=== PATIENT | female | born 1970 | race Caucasian/White ===

== ENCOUNTER 2024-06-23 13:01 | Outpatient (AMB) | payer BC, SELFPAY ==
--- NOTE | 2024-06-23 13:05 | MHC.OFFVIS ---
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 Accompanied by: Self / Same As Patient Allergies No Known Allergies Allergy (Verified 06/23/24 13:08) Medication List - Last Reconciled 06/23/24 by NAINA Jimenez albuterol sulfate 90 mcg/actuation 2 puffs inhalation Q6H PRN fluticasone furoate-vilanterol 100-25 mcg/dose 1 inh inhalation DAILY nkburoeetlx-khdiixajy-euxygjyo 100-62.5-25 mcg (Trelegy Ellipta) 1 inh inhalation DAILY gabapentin 300 mg PO TID sertraline 25 mg PO DAILY simvastatin 20 mg PO BEDTIME tramadol 50 mg PO BID PRN HPI HPI Fibromyalgia: Details: Patient is a 54 years old female with history of chronic pain syndrome, low back pain with bilateral sciatica, right knee pain, antiphospholibid syndrome, fatigue, depression, fibromyalgia, PE with infaction in 1992, COVID in 2021, migraine headaches, and RLS, presents today for initial evaluation of chronic pain and fibromyalgia. Denies any recent trauma, injury or falls. Patient completed physical therapy course at [facility] 5 months ago with minimal improvement. Reports therapeutic hip injection over 10 years ago. Patient reports chronic and widespread diffuse musculoskeletal pain on both sides of the body for over 35 years without any inciting events. She does report Neurological event in 2019 with new onset of severe headache, imbalance, movement disorders, tics which has improved but continues to experience concerning memory issues. Reports moderate trouble thinking and remembering. Patient also reports axial low back pain which extends to the right sacral area but without radiation into lower extremities. Pain is most severe in the morning, rated at 9/10. Reports fatigue and waking up tired on most days. Pain has gotten worse after menopause. She has seen a hypnotist for the pain in the past with some benefit. Pain affects here daily activities and functioning, mobility, sleep, mood and social interactions. Patient has been taking tramadol, Tylenol, Ibuprofen and gabapentin with partial benefit. She is interested in interventional and non-pharmacological treatments to address her symptoms. Today we are focusing on lower back pain. Denies any fevers, chills, cough, shortness of breaths, chest pain, weakness, foot drop, bladder or bowel dysfunction, or saddle anesthesia. 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 Right hand dominant. Drinks 2-3 cups of coffee daily and consumes marijuana edibles. Denies alcohol, smoking or illicit drug use. Former tobacco smoker 1PPD. Location: Lower back, widespread body pain Duration: Chronic pain for over 35 years Characteristics of symptom or complaint: Aching, throbbing, shooting, pulsing, burning, tingling, sharp, spreading Aggravating or associated factors: ALDs, movements, sleep, cold weather changes, stress Relieving factors: None, currently on tramadol, Tylenol, gabapentin, NSAIDs Treatment: PT at [facility] 5 months ago--minimal to no improvement, h/o hip injection [facility] Medical History (Updated 06/26/24 @ 10:52 by NAINA Jimenez) Depression Chronic fatigue Antiphospholipid syndrome Migraine Insomnia Obstructive sleep apnea Restless leg syndrome Hypercholesterolemia Asthma Chronic pain syndrome Fibromyalgia Pulmonary embolism and infarction (~1992) Surgical History H/O: hysterectomy H/O lumpectomy Social History Alcohol intake: never Patient Tobacco Use Status: Former Tobacco user Substance Use Type: Other Substance Use Type Other:: gummies Review of Systems Const All systems reviewed & are unremarkable except as noted in HPI and below Physical Exam Vital Signs: Last Vital Signs Pulse 78 06/23/24 13:09 BP 137/94 H 06/23/24 13:09 Pulse Ox 97 06/23/24 13:09 Oxygen Delivery Method Room Air 06/23/24 13:09 BMI result Body Mass Index 31.9 General: Appears afebrile. No acute distress. Alert and oriented. Mood and affect appropriate. Follows and participates in conversation appropriately. Respiratory effort is unlabored. No cough. Able to transition from sit to stand unassisted. Ambulates with bilaterally normal heel strike and toe off. General: Yes no CVA tenderness Back/Spine/Pelvis Other: Patient is able to walk and stand on heels and tip toes with no difficulties demonstrating good motor tone. No limping. Can flex forward to 70-75 degrees and extend to 10-15 degrees before experiencing lumbar pain. Demonstrates 5/5 strength of quadriceps bilaterally as well as flexion/dorsiflexion of bilateral feet against resistance. 2+ pedal pulses bilaterally. Straight leg rise with dorsiflexion negative bilaterally. +2 patellar and achilles reflexes bilaterally. Facet loading test positive bilaterally. Aime sign, Rashard?s, Gaenslen, Pelvic compression and Stinchfield tests are positive on the right. No groin pain with I/E hip rotations. Valsalva maneuver negative. Multiple widespread TTPs 16/16 bilaterally, including upper and lower extremities.?? Back: no CVA tenderness Cervical Spine: cervical ROM normal, cervical muscular tenderness and No Cervical spine tenderness Thoracic/Lumbar Spine: thoracic and lumbar spine normal to inspection, No Thoracic/lumbar spine scar(s), Lasegue's sign negative, straight leg raise negative bilaterally, pain with thoraco-lumbar ROM, paraspinal muscle tenderness, thoraco-lumbar ROM limited, No thoracic spinal tenderness and No lumbar spinal tenderness Pelvis: no buttock tenderness Sacroiliac joints: bilaterally (right>left) tender to palpation Results Reviewed Results Reviewed: MR LUMBAR SPINE WITHOUT CONTRAST 06/21/2019 at [facility] HISTORY: Decreased sensation both feet while walking rule out spinal stenosis initial encounter COMPARISON: None. TECHNIQUE: Sagittal and axial T1-weighted and fast spin echo T2-weighted images were obtained. FINDINGS: L1-2: The disc is of normal height and signal intensity without significant disc bulge or herniation. L2-3: The disc is of normal height and signal intensity without significant disc bulge or herniation. L3-4: The disc is of normal height and signal intensity without significant disc bulge or herniation. L4-5: The disc is of slightly diminished height and signal intensity. There is an annular tear with mild central disc herniation causing mild flattening the dural sac without nerve root compression. L5-S1: The disc is of normal height and signal intensity without significant disc bulge or herniation. Vertebral alignment is normal. There are scattered small benign vertebral hemangiomata. The marrow signal intensity is otherwise normal. Conus terminates at L1-2 and appears normal. There is no paraspinous mass. IMPRESSION: 1. Mild disc herniation at L4-5 causing mild flattening the dural sac without nerve root. MRI the lumbar spine is otherwise normal. No evidence for significant disc herniation or spinal stenosis. Assessment & Plan Assessment & Plan (1) Fibromyalgia: Code(s): M79.7 - Fibromyalgia Category: Medical (2) Chronic pain syndrome: Code(s): G89.4 - Chronic pain syndrome Category: Medical (3) Chronic low back pain: Code(s): M54.50 - Low back pain, unspecified; G89.29 - Other chronic pain Category: Medical (4) Sacroiliac joint pain: Code(s): M53.3 - Sacrococcygeal disorders, not elsewhere classified (5) Lumbosacral spondylosis: Code(s): M47.817 - Spondylosis without myelopathy or radiculopathy, lumbosacral region Category: Medical Plan Lumbar spine and SIJ imaging to assess degree of degenerative changes, any subluxation, listhesis, compression fractures or pars defects. Discussed interventional treatments for axial low back pain, including diagnostic and therapeutic injections, neuromodulation, and RFA procedures. Informational pamphlets were provided to patient. Tentatively plan for Bilateral Diagnostic L3-L4-DR L5 MBB with local and fluoroscopy. Expectations, risks and benefits were reviewed. Discussed management of fibromyalgia with patient. Educated patient that fibromyalgia is a noninflammatory, non-autoimmune and central afferent processing disorder leading to a diffuse and widespread musculoskeletal pain syndrome. Discussed importance of CBT for sleep and pain which patient can discuss with psychotherapist or mental therapist. Patient would benefit from increased physical activity, either through formal physical therapy, joining a gym, swimming with aquatherapy, stretching and acupuncture. Patient is currently prescribed gabapentin and tramadol by her PCP. Encouraged daily adequate hydration, good posture, physical activity, well balanced diet, weight optimization and sleep hygiene. All questions and concerns have been answered and patient agreed with the plan. Follow up for xray results and sooner as needed. Orders: Orders XR lumbar spine 4V min 06/23/24 G89.29 - Other chronic pain, G89.4 - Chronic pain syndrome, M54.50 - Low back pain, unspecified, M79.7 - Fibromyalgia XR sacroiliac joint min 3V 06/23/24 M53.3 - Sacrococcygeal disorders, not elsewhere classified Coding Level of Care Code New Pt Level 4 (06128) Complex EM visit Add On G2211 Diagnoses Fibromyalgia M79.7 Chronic pain syndrome G89.4 Chronic low back pain M54.50; G89.29 Sacroiliac joint pain M53.3 Lumbosacral spondylosis M47.817
[2024-06-23 13:09] VITALS: BP 137/94; PULSE 78; O2SAT 97; BMI 31.9
== END 2024-06-23 13:55 | disposition home or self-care (01) ==
PROVIDERS: PCP Internal Medicine; Visit Provider Nurse Practitioner Family
DX: M79.7 Fibromyalgia (principal); G89.4 Chronic pain syndrome; M54.50 Low back pain, unspecified; G89.29 Other chronic pain; M53.3 Sacrococcygeal disorders, not elsewhere classified; M47.817 Spondylosis without myelopathy or radiculopathy, lumbosacral region
CPT/HCPCS: 99204

== ENCOUNTER → 2024-06-23 13:01 | Outpatient (BNVA) | payer BC, SELFPAY | PROVIDERS: PCP Internal Medicine; Visit Provider Nurse Practitioner Family ==

== ENCOUNTER 2024-08-30 12:13 | Outpatient (REF) | payer BC, SELFPAY ==
--- NOTE | ~2024-08-30 | XR_ITS ---
EXAMINATION: XR SACROILIAC JOINTS CLINICAL INFORMATION: M53.3 - Sacrococcygeal disorders, not elsewhere classified COMPARISON: None available. TECHNIQUE: 3 views of the sacroiliac joints FINDINGS: Sclerosis of the sacroiliac joints more conspicuous on the right side. No lytic or blastic lesions. No acute cortical disruption. XR/XR sacroiliac joint min 3V IMPRESSION: Mild to moderate sacroiliitis, bilaterally. Electronically signed by: Enzo Regalado MD 08/30/2024 01:09 PM [facility]
--- NOTE | ~2024-08-30 | XR_ITS ---
EXAMINATION: XR LUMBAR SPINE 4 VIEWS CLINICAL INFORMATION: M54.50 - Low back pain, unspecified COMPARISON: None available. TECHNIQUE: 4 views lumbar spine were obtained. FINDINGS: Mild endplate sclerosis and the vertebral bodies of the lower thoracic spine and lower lumbar spine. Small Schmorl nodes in the lower thoracic and upper lumbar spine. No acute cortical disruption or malalignment. Facet joint hypertrophy at L5-S1. No lytic or blastic lesions. Vascular complications, aorta Sclerosis, right sacroiliac joint.. XR/XR lumbar spine 4V min IMPRESSION: Multilevel thoracolumbar spondylosis without acute fracture or listhesis. Electronically signed by: Enzo Regalado MD 08/30/2024 01:08 PM [facility]
== END 2024-08-30 12:14 | disposition home or self-care (01) ==
LOC: HO.XRAY 12:13
PROVIDERS: PCP Internal Medicine; Visit Provider Nurse Practitioner Family
DX: M54.50 Low back pain, unspecified (principal); G89.29 Other chronic pain; M79.7 Fibromyalgia; M53.3 Sacrococcygeal disorders, not elsewhere classified
CPT/HCPCS: 72110; 72202

== ENCOUNTER → 2024-08-30 12:20 | Outpatient (BNV) | payer BC, SELFPAY | PROVIDERS: PCP Internal Medicine; Visit Provider Radiology Diagnostic Radiology | DX: M47.895 Other spondylosis, thoracolumbar region (principal); M53.3 Sacrococcygeal disorders, not elsewhere classified | CPT/HCPCS: 72110; 72202 ==

== ENCOUNTER 2024-09-07 13:59 | Outpatient (AMB) | payer BC, SELFPAY ==
--- NOTE | 2024-09-07 14:02 | A.OFFVIS_ITS ---
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 She continues to endorse mid-low back pain with radiation into her buttocks and hips and diffuse, widespread body pain with joint pain in her shoulders, hips and knees. Pain is present with any activity, sleep or rest. Denies any recent cough, cold, infection, fever or other significant changes in medical history since last office visit. RIOR: Patient is a 54 years old female with history of chronic pain syndrome, low back pain with bilateral sciatica, right knee pain, antiphospholibid syndrome, fatigue, depression, fibromyalgia, PE with infaction in 1992, COVID in 2021, migraine headaches, and RLS, presents today for initial evaluation of chronic pain and fibromyalgia. Denies any recent trauma, injury or falls. Patient completed physical therapy course at [facility] 5 months ago with minimal improvement. Reports therapeutic hip injection over 10 years ago. Patient reports chronic and widespread diffuse musculoskeletal pain on both sides of the body for over 35 years without any inciting events. She does report Neurological event in 2019 with new onset of severe headache, imbalance, movement disorders, tics which has improved but continues to experience concerning memory issues. Reports moderate trouble thinking and remembering. Patient also reports axial low back pain which extends to the right sacral area but without radiation into lower extremities. Pain is most severe in the morning, rated at 9/10. Reports fatigue and waking up tired on most days. Pain has gotten worse after menopause. She has seen a hypnotist for the pain in the past with some benefit. Pain affects here daily activities and functioning, mobility, sleep, mood and social interactions. Patient has been taking tramadol, Tylenol, Ibuprofen and gabapentin with partial benefit. She is interested in interventional and non-pharmacological treatments to address her symptoms. Today we are focusing on lower back pain. Denies any fevers, chills, cough, shortness of breaths, chest pain, weakness, foot drop, bladder or bowel dysfunction, or saddle anesthesia. 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 Right hand dominant. Drinks 2-3 cups of coffee daily and consumes marijuana edibles. Denies alcohol, smoking or illicit drug use. Former tobacco smoker 1PPD. Location: Lower back, widespread body pain Duration: Chronic pain for over 35 years Characteristics of symptom or complaint: Aching, throbbing, shooting, pulsing, burning, tingling, sharp, spreading Aggravating or associated factors: ALDs, movements, sleep, cold weather changes, stress Relieving factors: None, currently on tramadol, Tylenol, gabapentin, NSAIDs Treatment: PT at [facility] 5 months ago--minimal to no improvement, h/o hip injection [facility] Medical History (Updated 09/07/24 @ 14:34 by NAINA Jimenez) Depression Chronic fatigue Antiphospholipid syndrome Migraine Insomnia Obstructive sleep apnea Restless leg syndrome Hypercholesterolemia Asthma Chronic pain syndrome Fibromyalgia Pulmonary embolism and infarction (~1992) Surgical History H/O: hysterectomy H/O lumpectomy Social History Alcohol intake: never Patient Tobacco Use Status: Former Tobacco user Substance Use Type: Other Review of Systems Const All systems reviewed & are unremarkable except as noted in HPI and below Physical Exam Vital Signs: Last Vital Signs Pulse 94 09/07/24 14:05 BP 133/79 09/07/24 14:05 Pulse Ox 97 09/07/24 14:05 Oxygen Delivery Method Room Air 09/07/24 14:05 BMI result Body Mass Index 33.7 General: Appears afebrile. Alert and oriented. Mood and affect appropriate. Follows and participates in conversation appropriately. Respiratory effort is unlabored. No cough. Able to transition from sit to stand unassisted. Ambulates with bilaterally normal heel strike and toe off. General: Yes no CVA tenderness Back/Spine/Pelvis Other: Limited lumbar ROM due to pain. Normal gait. No limping. Can flex forward to 70- 75 degrees and extend to 5-10 degrees before experiencing lumbar pain. Demonstrates 5/5 strength of quadriceps bilaterally as well as flexion/dorsiflexion of bilateral feet against resistance. 2+ pedal pulses bi laterally. Straight leg rise with dorsiflexion is negative bilaterally. +2 patellar and achilles reflexes bilaterally. Facet loading test positive bilaterally. Aime sign, Rashard?s, Gaenslen, Pelvic compression and Stinchfield tests are positive bilaterally, worse on the right. No groin pain with I/E hip rotations. Valsalva maneuver negative. Multiple widespread TTPs 16/16 bilaterally, including upper and lower extremities.?? Back: no CVA tenderness Cervical Spine: cervical ROM normal, cervical muscular tenderness, No Cervical spine tenderness and No step off deformity Thoracic/Lumbar Spine: thoracic and lumbar spine normal to inspection, No Thoracic/lumbar spine scar(s), Lasegue's sign negative, straight leg raise negative bilaterally, pain with thoraco-lumbar ROM, paraspinal muscle tenderness, thoraco-lumbar ROM limited, No thoracic spinal tenderness and lumbar spinal tenderness (L3-S1) Pelvis: buttock tenderness bilaterally Sacroiliac joints: bilaterally (right>left) tender to palpation Extrem General: Yes capillary refill normal, Yes no clubbing, cyanosis or edema and Yes no calf tenderness Results Reviewed Results Reviewed: XR LUMBAR SPINE 4 VIEWS 08/30/24 CLINICAL INFORMATION: M54.50 - Low back pain, unspecified FINDINGS: Mild endplate sclerosis and the vertebral bodies of the lower thoracic spine and lower lumbar spine. Small Schmorl nodes in the lower thoracic and upper lumbar spine. No acute cortical disruption or malalignment. Facet joint hypertrophy at L5-S1. No lytic or blastic lesions. Vascular complications, aorta Sclerosis, right sacroiliac joint.. IMPRESSION: Multilevel thoracolumbar spondylosis without acute fracture or listhesis. XR SACROILIAC JOINTS 08/30/24 CLINICAL INFORMATION: M53.3 - Sacrococcygeal disorders, not elsewhere classified COMPARISON: None available. TECHNIQUE: 3 views of the sacroiliac joints FINDINGS: Sclerosis of the sacroiliac joints more conspicuous on the right side. No lytic or blastic lesions. No acute cortical disruption. IMPRESSION: Mild to moderate sacroiliitis, bilaterally. MR LUMBAR SPINE WITHOUT CONTRAST 06/21/2019 at [facility] HISTORY: Decreased sensation both feet while walking rule out spinal stenosis initial encounter COMPARISON: None. TECHNIQUE: Sagittal and axial T1-weighted and fast spin echo T2-weighted images were obtained. FINDINGS: L1-2: The disc is of normal height and signal intensity without significant disc bulge or herniation. L2-3: The disc is of normal height and signal intensity without significant disc bulge or herniation. L3-4: The disc is of normal height and signal intensity without significant disc bulge or herniation. L4-5: The disc is of slightly diminished height and signal intensity. There is an annular tear with mild central disc herniation causing mild flattening the dural sac without nerve root compression. L5-S1: The disc is of normal height and signal intensity without significant disc bulge or herniation. Vertebral alignment is normal. There are scattered small benign vertebral hemangiomata. The marrow signal intensity is otherwise normal. Conus terminates at L1-2 and appears normal. There is no paraspinous mass. IMPRESSION: 1. Mild disc herniation at L4-5 causing mild flattening the dural sac without nerve root. MRI the lumbar spine is otherwise normal. No evidence for significant disc herniation or spinal stenosis. Assessment & Plan Assessment & Plan (1) Lumbosacral spondylosis: Code(s): M47.817 - Spondylosis without myelopathy or radiculopathy, lumbosacral region Category: Medical (2) Sacroiliac joint pain: Code(s): M53.3 - Sacrococcygeal disorders, not elsewhere classified Category: Medical (3) Fibromyalgia: Code(s): M79.7 - Fibromyalgia Category: Medical (4) Chronic pain syndrome: Code(s): G89.4 - Chronic pain syndrome Category: Medical (5) Polyarthralgia: Code(s): M25.50 - Pain in unspecified joint Category: Medical Plan Spine imaging reports were discussed with patient today. Discussed interventional treatments for axial low back and SI joint pain, including diagnostic vs therapeutic injections, neuromodulation with Sprint PNS trial vs Curonix PNS implant, SI joint stabilization and fusion and RFA procedures. Script provided for SI joint belt brace to [facility] at [place]. Schedule Bilateral Therapeutic Sacroiliac Joint Injections with local and fluoroscopy. Expectations, risks and benefits were reviewed. Patient is aware she will be contacted to schedule this procedure. Rheumatology referral to rule out autoimmune disorders, including RA and ankylosing spondylosis. Patient request provider closer to her home. All questions were answered and the patient is in agreement of plan. Follow-up after injections and sooner as needed. Orders: Referrals Rheumatology Referral G89.4 - Chronic pain syndrome, M25.50 - Pain in unspecified joint, M47.817 - Spondylosis without myelopathy or radiculopathy, lumbosacral region, M53.3 - Sacrococcygeal disorders, not elsewhere classified, M79.7 - Fibromyalgia Medications: New back brace As directed 1 ea 0RF lumbosacral support M47.817 - Spondylosis with out myelopathy or radiculopathy, lumbosacral region, M53.3 - Sacrococcygeal disorders, not elsewhere classified Coding Level of Care Code Est Pt Level 4 (38322) Complex EM visit Add On G2211 Diagnoses Lumbosacral spondylosis M47.817 Sacroiliac joint pain M53.3 Fibromyalgia M79.7 Chronic pain syndrome G89.4 Polyarthralgia M25.50
[2024-09-07 14:05] VITALS: BP 133/79; PULSE 94; O2SAT 97; BMI 33.7
== END 2024-09-07 14:31 | disposition home or self-care (01) ==
PROVIDERS: PCP Internal Medicine; Visit Provider Nurse Practitioner Family
DX: M47.817 Spondylosis without myelopathy or radiculopathy, lumbosacral region (principal); M53.3 Sacrococcygeal disorders, not elsewhere classified; M79.7 Fibromyalgia; G89.4 Chronic pain syndrome; M25.50 Pain in unspecified joint
CPT/HCPCS: 99214

== ENCOUNTER 2024-10-26 06:26 | Outpatient (REF) | payer BC, SELFPAY ==
--- NOTE | ~2024-10-26 | FL_ITS ---
EXAMINATION: FL GUIDANCE ONLY HISTORY: M53.3 - Sacrococcygeal disorders, not elsewhere classified COMPARISON: None available. TECHNIQUE: Fluoroscopy time: 12.9 seconds. Cumulative Dose: 6.7183 mGy. DAP: 0.5735 mGym2 Images: 3. FINDINGS: Images demonstrate needles and contrast material in the regions of the bilateral sacroiliac joints. FL/FL guidance in treatment room IMPRESSION: Fluoroscopy during procedure. Please see procedure report for additional information. Electronically signed by: Ramirez Neves MD 10/26/2024 03:15 PM EDT
== END 2024-10-26 06:27 | disposition home or self-care (01) ==
LOC: CF 06:26
PROVIDERS: Visit Provider Internal Medicine
DX: M53.3 Sacrococcygeal disorders, not elsewhere classified (principal)
CPT/HCPCS: 27096; J2003; J2795; J3301; Q9967

== ENCOUNTER 2024-10-26 12:52 | Outpatient (AMB) | payer BC, SELFPAY ==
[2024-10-26 13:01] VITALS: BP 128/86; PULSE 93; RESP 16; O2SAT 98
--- NOTE | 2024-10-26 13:01 | MHC.OFFVIS ---
Vital Signs 10/26/24 13:01 10/26/24 13:43 BP 128/86 143/83 H Blood Pressure Location Lt brachial Lt brachial Position Sitting Sitting Respiration 16 16 Pulse 93 88 Pulse Source Pulse Oximeter Pulse Oximeter Pulse Oximetry (%) 98 100 Oxygen Delivery Method Room Air Room Air Intake Visit Reasons: Gato theraputic SIJ inj/ ativan Mapping Specialist Required: No Allergies No Known Allergies Allergy (Verified 10/26/24 13:02) Medication List - Last Reconciled 10/26/24 by Colleen Grimaldo LPN albuterol sulfate 90 mcg/actuation 2 puffs inhalation Q6H PRN back brace As directed fluticasone furoate-vilanterol 100-25 mcg/dose 1 inh inhalation DAILY xwfenvkpwtz-gavrqryit-etwgglnv 100-62.5-25 mcg (Trelegy Ellipta) 1 inh inhalation DAILY gabapentin 300 mg PO TID lorazepam (Ativan) 1 mg PO ONCE sertraline 25 mg PO DAILY simvastatin 20 mg PO BEDTIME tramadol 50 mg PO BID PRN HPI HPI Gato theraputic SIJ inj/ ativan: Details: Patient presents for scheduled procedure. Denies any recent cough, cold, infection, fever or other significant changes in medical history since last office visit. [facility] Medical History (Updated 09/07/24 @ 14:34 by NAINA Jimenez) Depression Chronic fatigue Antiphospholipid syndrome Migraine Insomnia Obstructive sleep apnea Restless leg syndrome Hypercholesterolemia Asthma Chronic pain syndrome Fibromyalgia Pulmonary embolism and infarction (~1992) Surgical History H/O: hysterectomy H/O lumpectomy Social History Alcohol intake: never Patient Tobacco Use Status: Former Tobacco user Substance Use Type: Other Physical Exam Vital Signs: Last Vital Signs Pulse 88 10/26/24 13:43 Resp 16 10/26/24 13:43 BP 143/83 H 10/26/24 13:43 Pulse Ox 100 10/26/24 13:43 Oxygen Delivery Method Room Air 10/26/24 13:43 Office Procedures AMB Joint Injection/Aspiration Joint Injection/Aspiration Details: Sacroiliac Joint Injection, Bilateral The procedure, its benefits, and its risks were explained and written informed consent was obtained from the patient. Immediately prior to starting the procedure, a time-out safety check was conducted. The patient's identification, procedure name, procedure site, and procedure laterality were confirmed with the patient. ? Patient was placed prone on the fluoroscopy table and the lumbosacral area was prepped using ChloraPrep and draped with sterile drapein standard fashion. The C-arm was rotated in a contralateral oblique fashion until the medial border of the iliac crest no longer foreshadowed the posterior sacroiliac joint line. The skin and subcutaneous tissue was anesthetized using 1 mL of 0.75% plain lidocaine with 1.5-inch 25-gauge needle in the middle region of the joint line.? A 3.5-inch 22-gauge spinal needle with small bend on the tip was slowly advanced towards the joint line, coaxial to the x-ray beam. Once bony content was obtained, the needle was easily slid into the intra-articular space.? Intra-articular needle position was confirmed using lateral fluoroscopy.? A total volume of 2.5mL of solution containing 40 mg kenalog and rest 0.5% of ropivacaine was injected intra-articularly. The stylet was reinserted and needle was removed. Same process repeated on the other side. The patient tolerated the procedure well. Patient denied any lower extremity weakness or numbness. Patient was observed for 30 min and was discharged after fulfilling the standard discharge criteria. Coding 50176 - Sacroiliac (bilateral) Procedure code (CPT) selection complete Assessment & Plan Assessment & Plan (1) Sacroiliac joint pain: Code(s): M53.3 - Sacrococcygeal disorders, not elsewhere classified Category: Medical Plan Patient is status post bilateral therapeutic SIJ injections. Patient tolerated procedure well and was discharged home in stable condition with discharge instructions. All questions were answered. We will follow-up via telephone or in clinic to assess response to therapy. A follow-up appointment was made during today's visit. Orders: Orders FL guidance in treatment room 10/26/24 M53.3 - Sacrococcygeal disorders, not elsewhere classified Medications: New lorazepam (Ativan) Take 30 minutes prior to arrival to procedure 1 mg PO ONCE 1 tab 0RF anxiety Coding Level of Care Code Procedure Only Diagnoses Sacroiliac joint pain M53.3 CPT Codes Coding - Joint 9: 46248 - Sacroiliac ([id number])
[2024-10-26 13:43] VITALS: BP 143/83; PULSE 88; RESP 16; O2SAT 100
== END 2024-10-26 13:45 | disposition home or self-care (01) ==
LOC: HO.PMCPRC 12:52
PROVIDERS: PCP Internal Medicine; Visit Provider Internal Medicine
DX: M53.3 Sacrococcygeal disorders, not elsewhere classified (principal)
CPT/HCPCS: 27096

== ENCOUNTER 2024-12-28 11:26 | Outpatient (AMB) | payer BC, SELFPAY ==
--- NOTE | 2024-12-28 11:29 | A.OFFVIS_ITS ---
Vital Signs 12/28/24 11:32 Height 5 ft 3 in Weight 190 lb BMI 33.7 BP 141/85 H Blood Pressure Location Rt brachial Position Sitting Pulse 85 Pulse Source Pulse Oximeter Pulse Oximetry (%) 98 Oxygen Delivery Method Room Air Intake Visit Reasons: s/p phillip theraputic SIJ inj Intake Note: Pain today 10/26 Developer Automatic Required: No Accompanied by: Self / Same As Patient Allergies No Known Allergies Allergy (Verified 12/28/24 11:33) Medication List - Last Reconciled 12/28/24 by NAINA Jimenez albuterol sulfate 90 mcg/actuation 2 puffs inhalation Q6H PRN back brace As directed fluticasone furoate-vilanterol 100-25 mcg/dose 1 inh inhalation DAILY xiuyqbimwbh-iruejgnmy-qvqcqaox 100-62.5-25 mcg (Trelegy Ellipta) 1 inh inhalation DAILY gabapentin 300 mg PO TID lorazepam (Ativan) 1 mg PO ONCE naltrexone mg PO sertraline 25 mg PO DAILY simvastatin 20 mg PO BEDTIME tramadol 50 mg PO BID PRN HPI Comments Details: Patient presents today for follow up to assess response to bilateral therapeutic SIJ injections on 10/26/[address] Griggs. Patient reports initial relief from symptoms starting approximately nine days post-injection, with a substantial reduction in pain (around 80%) for two weeks. However, the pain gradually returned to baseline levels, currently at 4/10 intensity, particularly affecting her lower back, buttocks, and legs. Pain affects daily activities, particularly ambulation and extended periods of standing or sitting. The patient has a history of degenerative arthritis of the lumbar spine, confirmed by imaging and fibromyalgia. These conditions contribute to her chronic pain profile. The patient has been advised to commence low-dose naltrexone, starting at 1.5 mg by her Supervisor Pre Wave, Dr. Davis in [place]. She has previously used gabapentin for neuropathy but found it ineffective for pain relief. Her current pain management regimen includes tramadol, Tylenol, and Advil, with guidance to alter tramadol usage to avoid nighttime doses due to the interaction with naltrexone. The consultation soliz a continuation of efforts to optimize pain management and explore further therapeutic options such as diagnostic lumbar medial branch block injections leading to radiofrequency ablation or Sprint PNS trial for a sustained relief. Past Procedures: 10/26/24: bilateral therapeutic SIJ injections-80% pain relief for 2 weeks PRIOR: Patient is a 54 years old female with history of chronic pain syndrome, low back pain with bilateral sciatica, right knee pain, antiphospholibid syndrome, fatigue, depression, fibromyalgia, PE with infarction in 1992, COVID in 2021, migraine headaches, and RLS, presents today for initial evaluation of chronic pain and fibromyalgia. Denies any recent trauma, injury or falls. Patient completed physical therapy course at [facility] 5 months ago with minimal improvement. Reports therapeutic hip injection over 10 years ago. Patient reports chronic and widespread diffuse musculoskeletal pain on both sides of the body for over 35 years without any inciting events. She does report Neurological event in 2019 with new onset of severe headache, imbalance, movement disorders, tics which has improved but continues to experience concerning memory issues. Reports moderate trouble thinking and remembering. Patient also reports axial low back pain which extends to the right sacral area but without radiation into lower extremities. Pain is most severe in the morning, rated at 9/10. Reports fatigue and waking up tired on most days. Pain has gotten worse after menopause. She has seen a hypnotist for the pain in the past with some benefit. Pain affects here daily activities and functioning, mobility, sleep, mood and social interactions. [place] ent has been taking tramadol, Tylenol, Ibuprofen and gabapentin with partial benefit. She is interested in interventional and non-pharmacological treatments to address her symptoms. Today we are focusing on lower back pain. Denies any fevers, chills, cough, shortness of breaths, chest pain, weakness, foot drop, bladder or bowel dysfunction, or saddle anesthesia. 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 Right hand dominant. Drinks 2-3 cups of coffee daily and consumes marijuana edibles. Denies alcohol, smoking or illicit drug use. Former tobacco smoker 1PPD. Location: Lower back, widespread body pain Duration: Chronic pain for over 35 years Characteristics of symptom or complaint: Aching, throbbing, shooting, pulsing, burning, tingling, sharp, spreading Aggravating or associated factors: ALDs, movements, sleep, cold weather changes, stress Relieving factors: None, currently on tramadol, Tylenol, gabapentin, NSAIDs Treatment: PT at [facility] 5 months ago--minimal to no improvement, h/o hip injection [facility] Medical History Depression Chronic fatigue Antiphospholipid syndrome Migraine Insomnia Obstructive sleep apnea Restless leg syndrome Hypercholesterolemia Asthma Chronic pain syndrome Fibromyalgia Pulmonary embolism and infarction (~1992) Surgical History H/O: hysterectomy H/O lumpectomy Social History Alcohol intake: never Patient Tobacco Use Status: Former Tobacco user Substance Use Type: Other Review of Systems Const All systems reviewed & are unremarkable except as noted in HPI and below Physical Exam Vital Signs: Last Vital Signs Pulse 85 12/28/24 11:32 BP 141/85 H 12/28/24 11:32 Pulse Ox 98 12/28/24 11:32 Oxygen Delivery Method Room Air 12/28/24 11:32 BMI result Body Mass Index 33.7 General: Appears afebrile. Alert and oriented. Mood and affect appropriate. Follows and participates in conversation appropriately. Respiratory effort is unlabored. No cough. Able to transition from sit to stand unassisted. Ambulates with bilaterally normal heel strike and toe off. General: Yes no CVA tenderness Back/Spine/Pelvis Other: Limited lumbar ROM due to pain. Normal gait. No limping. Can flex forward to 75- 80 degrees and extend to 5-10 degrees before experiencing lumbar pain. Demonstrates 5/5 strength of quadriceps bilaterally as well as flexion/dorsiflexion of bilateral feet against resistance. 2+ pedal pulses bilaterally. Straight leg rise with dorsiflexion is negative bilaterally. +2 patellar and achilles reflexes bilaterally. Facet loading test positive bilaterally. Aime sign, Rashard?s, Gaenslen, Pelvic compression and Stinchfield tests are positive bilaterally, right>left. No groin pain with I/E hip rotations. Valsalva maneuver negative. Multiple widespread TTPs 16/16 bilaterally, including upper and lower extremities.?? Back: no CVA tenderness Cervical Spine: cervical ROM normal, cervical muscular tenderness, No Cervical spine tenderness and No step off deformity Thoracic/Lumbar Spine: thoracic and lumbar spine normal to inspection, No Thoracic/lumbar spine scar(s), Lasegue's sign negative, straight leg raise n egative bilaterally, pain with thoraco-lumbar ROM, paraspinal muscle tenderness, thoraco-lumbar ROM limited, No thoracic spinal tenderness and lumbar spinal tenderness (L3-S1) Pelvis: no buttock tenderness Sacroiliac joints: bilaterally (right>left) tender to palpation (minimal) Results Reviewed Results Reviewed: XR LUMBAR SPINE 4 VIEWS 08/30/24 CLINICAL INFORMATION: M54.50 - Low back pain, unspecified FINDINGS: Mild endplate sclerosis and the vertebral bodies of the lower thoracic spine and lower lumbar spine. Small Schmorl nodes in the lower thoracic and upper lumbar spine. No acute cortical disruption or malalignment. Facet joint hypertrophy at L5-S1. No lytic or blastic lesions. Vascular complications, aorta Sclerosis, right sacroiliac joint.. IMPRESSION: Multilevel thoracolumbar spondylosis without acute fracture or listhesis. XR SACROILIAC JOINTS 08/30/24 CLINICAL INFORMATION: M53.3 - Sacrococcygeal disorders, not elsewhere classified COMPARISON: None available. TECHNIQUE: 3 views of the sacroiliac joints FINDINGS: Sclerosis of the sacroiliac joints more conspicuous on the right side. No lytic or blastic lesions. No acute cortical disruption. IMPRESSION: Mild to moderate sacroiliitis, bilaterally. MR LUMBAR SPINE WITHOUT CONTRAST 06/21/2019 at [facility] HISTORY: Decreased sensation both feet while walking rule out spinal stenosis initial encounter COMPARISON: None. TECHNIQUE: Sagittal and axial T1-weighted and fast spin echo T2-weighted images were obtained. FINDINGS: L1-2: The disc is of normal height and signal intensity without significant disc bulge or herniation. L2-3: The disc is of normal height and signal intensity without significant disc bulge or herniation. L3-4: The disc is of normal height and signal intensity without significant disc bulge or herniation. L4-5: The disc is of slightly diminished height and signal intensity. There is an annular tear with mild central disc herniation causing mild flattening the dural sac without nerve root compression. L5-S1: The disc is of normal height and signal intensity without significant disc bulge or herniation. Vertebral alignment is normal. There are scattered small benign vertebral hemangiomata. The marrow signal intensity is otherwise normal. Conus terminates at L1-2 and appears normal. There is no paraspinous mass. IMPRESSION: 1. Mild disc herniation at L4-5 causing mild flattening the dural sac without nerve root. MRI the lumbar spine is otherwise normal. No evidence for significant disc herniation or spinal stenosis. Assessment & Plan Assessment & Plan (1) Chronic pain syndrome: Code(s): G89.4 - Chronic pain syndrome Category: Medical (2) Chronic low back pain: Code(s): M54.50 - Low back pain, unspecified; G89.29 - Other chronic pain Category: Medical (3) Lumbosacral spondylosis: Code(s): M47.817 - Spondylosis without myelopathy or radiculopathy, lumbosacral region Category: Medical (4) Sacroiliac joint pain: Code(s): M53.3 - Sacrococcygeal disorders, not elsewhere classified Category: Medical (5) Fibromyalgia: Code(s): M79.7 - Fibromyalgia Category: Medical Plan During this follow-up visit, the mixed response to bilateral SI joint injections was discussed, attributing the short duration of relief to potential contributors like degenerative arthritis and fibromyalgia. Diagnostic injections to address axial low back pain are planned. Patient is aware these injections are temporary but necessary to confirm candidacy for radiofrequency ablation (RFA) vs Sprint PNS trial with the potential for extended relief. Continued monitoring of tramadol and naltrexone usage is essential, particularly observing the interactions and adjusting scheduling. Patient will follow up with Dr. Davis, Rheumotologist in 3 weeks. Schedule Bilateral Diagnostic L3-L4 DR L5 MBB Injections with local and fluoroscopy. Expectations, risks and benefits were reviewed. Patient is aware she will be contacted to schedule this procedure. All questions were answered and the patient is in agreement of plan. Follow-up after injections and sooner as needed. Patient was informed and verbally consented to the use of an ambient scribe for clinic note documentation during this visit. Patient Instructions: During the visit, I discussed with the patient her response to the bilateral SI joint injections and elaborated on the possibility of degenerative arthritis and fibromyalgia contributing to the limited duration of relief. I highlighted the potential benefits of undergoing diagnostic injections in the back for further procedural assessment leading to radiofrequency ablation, which can offer longer-term pain relief. I explained the procedural requirements, including insurance validation, and the necessity of confirming procedural appropriateness via diagnostic injections. I reviewed interactions between tramadol and naltrexone, advising by her Supervisor Pre Wave to avoid night-time doses of tramadol. Continued evaluation of the patient's response to naltrexone will inform subsequent treatment options. The importance of coordination with insurance for procedural approval was also emphasized. Coding Level of Care Code Est Pt Level 4 (05543) Complex EM visit Add On G2211 Diagnoses Chronic pain syndrome G89.4 Chronic low back pain M54.50; G89.29 Lumbosacral spondylosis M47.817 Sacroiliac joint pain M53.3 Fibromyalgia M79.7
[2024-12-28 11:32] VITALS: BP 141/85; PULSE 85; O2SAT 98; BMI 33.7
== END 2024-12-28 11:51 | disposition home or self-care (01) ==
LOC: HO.PMC 11:27
PROVIDERS: PCP Internal Medicine; Visit Provider Nurse Practitioner Family
DX: G89.4 Chronic pain syndrome (principal); M54.50 Low back pain, unspecified; G89.29 Other chronic pain; M47.817 Spondylosis without myelopathy or radiculopathy, lumbosacral region; M53.3 Sacrococcygeal disorders, not elsewhere classified; M79.7 Fibromyalgia
CPT/HCPCS: 99214

== ENCOUNTER → 2024-12-28 11:26 | Outpatient (BNVA) | payer BC, SELFPAY | PROVIDERS: PCP Internal Medicine; Visit Provider Nurse Practitioner Family ==

== ENCOUNTER 2025-02-15 06:24 | Outpatient (REF) | payer BC, SELFPAY ==
--- NOTE | ~2025-02-15 | FL_ITS ---
EXAMINATION: XR FLUOROSCOPY WITH IMAGES CLINICAL INFORMATION: Lumbar pain management. COMPARISON: None available. TECHNIQUE: Fluoroscopy provided to: Dr. Griggs Fluoroscopy time: 0.2 minutes DAP: 0.0788 mGycm2 Images: 2 FINDINGS: 2 fluoroscopic spot images taken during lumbar pain management injections. These refer to the full procedural report for details. FL/FL guidance in treatment room IMPRESSION: Fluoroscopic guidance. Electronically signed by: Ac Parks MD 02/15/2025 01:12 PM EDT
--- OUTSIDE RECORDS SUMMARY | 2025-02-15 06:26 | XMS_ITS | Encounter Summary ---
Author Organization [facility] Address [address] [facility] [address] [place] [phone] Phone Care Team Providers Care Floor Helper Name Role Phone Davey Beyer MD Primary Care Provider + Encounter Details Date Type Department Care Team (Late st Contact Info) Description 01/29/2021 Ancillary Orders [facility] [address] [place] [address] Mariela Bejarano MD [address] [facility] [address] [place] [address] [email or web address] Breast screening Social History Tobacco Use Types Packs/Day Years Used Date Smoking Tobacco: Former Smokeless Tobacco: Never Alcohol Use Standard Drinks/Week Comments Never 0 (1 standard drink = 0.6 oz pur e alcohol) Comments No Sex and Gender Information Value Date Recorded Sex Assigned at Female 02/09/2019 6:43 PM EDT Legal Sex Female 9:23 AM EST Gender Identity Female 02/09/2019 6:43 PM EDT Sexual Orientation Straight 02/09/2019 6: 43 PM EDT Occupation Industry Job Start Date Job End Date Staying at home Not on file Not on file Not on file documented as of this encounter Plan of Treatment Not on file documented as of this encounter Results * BI MAMMOGRAM SCREENING WITH TOMOSYNTHESIS WITH CAD (BILATERAL) (04/18/2021 10:55 AM EDT) Anatomical Region Laterality Modality Breast Left, Breast Right, Breast Bilateral Bila teral Mammography 04/18/2021 4:29 PM EDT Impressions 04/18/2021 4:35 PM EDT No mammographic signs of malignancy. Annual screening is recommended. BI-RADS CATEGORY: 2 - Benign finding. DENSITY: There are scattered fibroglandular densities. Narrative 04/18/2021 4:35 PM EDT Bilateral mammography is performed in conjunction with computed aided detection. 3-D tomography along with 2-D C view imaging was also performed. Comparison made to previous dated as far back as 03/29/2017 and as recent as 04/17/2020. The patient is status-post left lumpectomy and radiation therapy for breast carcinoma and status-post benign core biopsies of right breast. Post-therapeutic changes in the left breast are stable. Well-circumscribed mass with macro lobular margins in the outer right breast is stable for years. No suspicious masses, no suspicious areas of architectural distortion or suspicious microcalcifications. Multiple biopsy markers remain present in the right breast. Procedure Note Villa Maldonado MD - 04/18/2021 Bilateral mammography is performed in conjunction with computed aideddetection. 3-D tomography along with 2-D C view imaging was alsoperformed. Comparison made to previous dated as far back as 03/29/2017 andas recent as 04/17/2020. The patient is status-post left lumpectomy and radiation therapy forbreast carcinoma and status-post benign core biopsies of right breast. Post-therapeutic changes in the left breast are stable. Well-circumscribedmass with macro lobular margins in the outer right breast is stable foryears. No suspicious masses, no suspicious areas of architecturaldistortion or suspicious microcalcifications. Multiple biopsy markersremain present in the right breast. IMPRESSION: No mammographic signs of malignancy. Annual screening is recommended. BI-RADS CATEGORY: 2 - Benign finding. DENSITY: There are scattered fibroglandular densities. Mariela Bejarano MD IMG MG EXAMS Final Resu lt documented in this encounter Visit Diagnoses Diagnosis Breast screening Breast screening, unspecified Breast screening Breast screening, unspecified documented in this encounter Additional Health Concerns Infection Onset Date Last Indicated Resolved Time CoV-Risk 07/19/2022 07/19/2022 07/30/2022 1:24 AM EST CoV-Risk 08/12/2023 08/12/2023 08/23/2023 1:22 AM EST CoV-Risk 07/28/2024 07/28/2024 08/08/2024 1:22 AM EST documented as of this encounter Care Teams Floor Helper Relationship Specialty Start Date End Date Davey Beyer MD [address] [place] [id number] [email or web address] PCP - General Internal Medicine 06/20/18 documented as of this encounter Additional Source Comments The information contained in this document represents components of the legal health record. It is not the complete legal health record.[facility]
== END 2025-02-15 06:25 | disposition home or self-care (01) ==
LOC: CF 06:24
PROVIDERS: Visit Provider Internal Medicine
DX: M47.817 Spondylosis without myelopathy or radiculopathy, lumbosacral region (principal); M47.816 Spondylosis without myelopathy or radiculopathy, lumbar region; M54.50 Low back pain, unspecified
CPT/HCPCS: 64493; 64494; J2003; J2795; Q9967

== ENCOUNTER 2025-02-15 11:23 | Outpatient (AMB) | payer BC, SELFPAY ==
--- NOTE | 2025-02-15 11:24 | A.OFFVIS_ITS ---
Vital Signs 02/15/25 11:28 02/15/25 11:40 Height 5 ft 3 in 5 ft 3 in Weight 190 lb 190 lb BMI 33.7 33.7 BP 133/94 H 140/80 H Blood Pressure Location Lt brachial Lt brachial Position Sitting Sitting Respiration 16 16 Pulse 91 80 Pulse Source Pulse Oximeter Pulse Oximeter Pulse Oximetry (%) 98 98 Oxygen Delivery Method Room Air Room Air Intake Visit Reasons: Gato Dx L3-L4-DR-L5 MBB/ ativan Allergies No Known Allergies Allergy (Verified 12/28/24 11:33) HPI HPI Gato Dx L3-L4-DR-L5 MBB/ ativan: Details: Patient presents for scheduled procedure. Denies any recent cough, cold, infection, fever or other significant changes in medical history since last office visit. [facility] Medical History Depression Chronic fatigue Antiphospholipid syndrome Migraine Insomnia Obstructive sleep apnea Restless leg syndrome Hypercholesterolemia Asthma Chronic pain syndrome Fibromyalgia Pulmonary embolism and infarction (~1992) Surgical History H/O: hysterectomy H/O lumpectomy Social History Alcohol intake: never Patient Tobacco Use Status: Former Tobacco user Substance Use Type: Other Physical Exam Vital Signs: Last Vital Signs Pulse 80 02/15/25 11:40 Resp 16 02/15/25 11:40 BP 140/80 H 02/15/25 11:40 Pulse Ox 98 02/15/25 11:40 Oxygen Delivery Method Room Air 02/15/25 11:40 BMI result Body Mass Index 33.7 Office Procedures Details: Lumbar Medial Branch Block, Bilateral L3, L4 medial branches and L5 Dorsal Ramus (2 levels, 3 nerves) After obtaining written consent, pre-procedure blood pressure and pulse were recorded and are in the nursing record for review. The patient was placed in a prone position. The respective lumbosacral area was prepped with chloraprep and draped in sterile fashion. The skin over the target medial branch nerves was anesthetized with 0.5% lidocaine. A 22 gauge 3.5 inch needle was inserted into the target medial branch nerve under fluoroscopic guidance. No paresthesias were elicited with needle placement and aspiration was negative for blood and CSF. Next, 0.2cc of omnipaque 180 was injected to verify positioning in AP and oblique imaging. Next 0.5 ml 0.5% ropivicaine was injected (0.5cc total per level). The identical procedure was performed at the remaining levels. The skin was cleansed and a sterile bandage was applied. Following the procedure the patient's vital signs were stable. The patient tolerated the procedure well and no complications were encountered. Following the procedure the patient's vital signs were stable. The patient was discharged home in good condition with post-procedural instructions. Time Out: Immediately prior to the procedure, the following was verbally confirmed that there is a signed consent form and that the correct patient, planned procedure, site and side are consistent with documentation and that necessary equipment and/or blood products are available prior to the start of the case. Complications: none EBL: <5 cc 32392 - with Fluoroscopy (L3-L4) (Bilateral) 80508 - second level with Fluoroscopy (L3-L4-L5) Procedure code (CPT) selection complete Assessment & Plan Assessment & Plan (1) Lumbosacral spondylosis: Code(s): M47.817 - Spondylosis without myelopathy or radiculopathy, lumbosacral region Category: Medical Plan Patient is status post bilateral diagnostic L3, L4 medial branches and L5 dorsal ramus blocks. Patient tolerated procedure well and was discharged home in stable condition with discharge instructions. All questions were answered. We will follow-up via telephone or in clinic to assess response to therapy. A follow-up appointment was made during today's visit. Orders: Orders AMB Medial Branch Block - Lumbar/Sacral Today Sky Griggs MD M47.816 - Spondylosis without myelopathy or radiculopathy, lumbar region FL guidance in treatment room Today Shikha Ann APRN, WASHING MACHINE REPAIRER M47.817 - Spondylosis without myelopathy or radiculopathy, lumbosacral region Medications: Refilled lorazepam (Ativan) Take 30 minutes prior to arrival to procedure 1 mg PO ONCE 1 tab 0RF anxiety Shikha Ann APRN, WASHING MACHINE REPAIRER Coding Level of Care Code Procedure Only Diagnoses Lumbosacral spondylosis M47.817 CPT Codes Medial Branch Block Lumbar/Sacral1 - Branch Block Lumb/Sac 1: 87729 - with Fluoroscopy (L3-L4) ([id number]) Medial Branch Block Lumbar/Sacral1 - Branch Block Lumb/Sac 2: 33462 - second level with Fluoroscopy (L3-L4-L5) ([id number])
[2025-02-15 11:28] VITALS: BP 133/94; PULSE 91; RESP 16; O2SAT 98; BMI 33.7
[2025-02-15 11:40] VITALS: BP 140/80; PULSE 80; RESP 16; O2SAT 98; BMI 33.7
== END 2025-02-15 11:55 | disposition home or self-care (01) ==
LOC: HO.PMCPRC 11:23
PROVIDERS: PCP Internal Medicine; Visit Provider Internal Medicine
DX: M47.817 Spondylosis without myelopathy or radiculopathy, lumbosacral region (principal)
CPT/HCPCS: 64493; 64494

== ENCOUNTER 2025-02-22 11:33 | Outpatient (AMB) | payer BC, SELFPAY ==
--- NOTE | 2025-02-22 11:35 | A.OFFVIS_ITS ---
Vital Signs 02/22/25 11:38 Height 5 ft 3 in Weight 193 lb BMI 34.2 BP 183/83 H Blood Pressure Location Rt brachial Position Sitting Pulse 89 Pulse Source Pulse Oximeter Pulse Oximetry (%) 98 Oxygen Delivery Method Room Air Intake Visit Reasons: s/p phillip Dx L3-L4-DR-L5 MBB Intake Note: Pain today 10/26 Computer Lab Aide Required: No Accompanied by: Self / Same As Patient Allergies No Known Allergies Allergy (Verified 02/22/25 11:39) HPI Comments Details: The patient is a 54-year-old female presenting with a follow-up after diagnostic bilateral lumbar medial branch blocks. The procedure was performed on February 15, and the patient reported no significant pain relief during the 6-8-hour diagnostic window post-procedure. She did not experience any improvement in her sleep quality, functioning or pain levels following the injections. The patient has chronic thoracic and lumbar arthritis, which has been confirmed by imaging studies showing no fractures, dislocations, or slippage. She reports discomfort in both sitting and standing positions and has previously undergone physical therapy for hip-related issues. She is interested to return to PT to address back and SI joint pain. The patient also has fibromyalgia, contributing to her heightened pain sensitivity. Denies any recent cough, cold, infection, fever or any other significant changes in medical history since last office visit. Past Procedures: 10/26/24: bilateral therapeutic SIJ injections-80% pain relief for 2 weeks PRIOR: Patient is a 54 years old female with history of chronic pain syndrome, low back pain with bilateral sciatica, right knee pain, antiphospholibid syndrome, fatigue, depression, fibromyalgia, PE with infarction in 1992, COVID in 2021, migraine headaches, and RLS, presents today for initial evaluation of chronic pain and fibromyalgia. Denies any recent trauma, injury or falls. Patient completed physical therapy course at [facility] 5 months ago with minimal improvement. Reports therapeutic hip injection over 10 years ago. Patient reports chronic and widespread diffuse musculoskeletal pain on both sides of the body for over 35 years without any inciting events. She does report Neurological event in 2019 with new onset of severe headache, imbalance, movement disorders, tics which has improved but continues to experience concerning memory issues. Reports moderate trouble thinking and remembering. Patient also reports axial low back pain which extends to the right sacral area but without radiation into lower extremities. Pain is most severe in the morning, rated at 9/10. Reports fatigue and waking up tired on most days. Pain has gotten worse after menopause. She has seen a hypnotist for the pain in the past with some benefit. Pain affects here daily activities and functioning, mobility, sleep, mood and social interactions. Patient has been taking tramadol, Tylenol, Ibuprofen and gabapentin with partial benefit. She is interested in interventional and non-pharmacological treatments to address her symptoms. Today we are focusing on lower back pain. Denies any fevers, chills, cough, shortness of breaths, chest pain, weakness, foot drop, bladder or bowel dysfunction, or saddle anesthesia. 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 Right hand dominant. Drinks 2-3 cups of coffee daily and consumes marijuana edibles. Denies alcohol, smoking or illicit drug use. Former tobacco smoker 1PPD. Location: Lower back, widespread body pain Duration: Chronic pain for over 35 years Characteristics of symptom or complaint: Aching, throbbing, shooting, pulsing, burning, tingling, sharp, spreading Aggravating or associated factors: ALDs, movements, sleep, cold weather changes, stress Relieving factors: None, currently on tramadol, Tylenol, gabapentin, NSAIDs Treatment: PT at [facility] 5 months ago--minimal to no improvement, h/o hip injection [facility] Medical History Depression Chronic fatigue Antiphospholipid syndrome Migraine Insomnia Obstructive sleep apnea Restless leg syndrome Hypercholesterolemia Asthma Chronic pain syndrome Fibromyalgia Pulmonary embolism and infarction (~1992) Surgical History H/O: hysterectomy H/O lumpectomy Social History Alcohol intake: never Patient Tobacco Use Status: Former Tobacco user Substance Use Type: Other Review of Systems Const Details: - Musculoskeletal: Reports persistent thoracic and lumbar pain. Denies improvement post-procedure. - Neurological: Denies changes in sleep quality post-procedure. All systems reviewed & are unremarkable except as noted in HPI and below Physical Exam Vital Signs: Last Vital Signs Pulse 89 02/22/25 11:38 BP 183/83 H 02/22/25 11:38 Pulse Ox 98 02/22/25 11:38 Oxygen Delivery Method Room Air 02/22/25 11:38 BMI result Body Mass Index 34.2 General: Appears afebrile. Alert and oriented. Mood and affect appropriate. Follows and participates in conversation appropriately. Respiratory effort is unlabored. No cough. Able to transition from sit to stand unassisted. Ambulates with bilaterally normal heel strike and toe off. Multiple widespread TTPs 16/16 bilaterally, including upper and lower extremities. Back/Spine/Pelvis Cervical Spine: cervical ROM normal, cervical muscular tenderness and No Cervical spine tenderness Thoracic/Lumbar Spine: thoracic and lumbar spine normal to inspection, No Thoracic/lumbar spine scar(s), Lasegue's sign negative, straight leg raise negative bilaterally, pain with thoraco-lumbar ROM (Positive facet loading bilaterally), paraspinal muscle tenderness, thoraco-lumbar ROM limited, No thoracic spinal tenderness and lumbar spinal tenderness (L4-S1) Pelvis: buttock tenderness bilaterally Sacroiliac joints: bilaterally tender to palpation (minimal) Extrem General: Yes capillary refill normal, Yes no clubbing, cyanosis or edema and Yes no calf tenderness Results Reviewed Results Reviewed: XR LUMBAR SPINE 4 VIEWS 08/30/24 CLINICAL INFORMATION: M54.50 - Low back pain, unspecified FINDINGS: Mild endplate sclerosis and the vertebral bodies of the lower thoracic spine and lower lumbar spine. Small Schmorl nodes in the lower thoracic and upper lumbar spine. No acute cortical disruption or malalignment. Facet joint hypertrophy at L5-S1. No lytic or blastic lesions. Vascular complications, aorta Sclerosis, right sacroiliac joint.. IMPRESSION: Multilevel thoracolumbar spondylosis without acute fracture or listhesis. XR SACROILIAC JOINTS 08/30/24 CLINICAL INFORMATION: M53.3 - Sacrococcygeal disorders, not elsewhere classified COMPARISON: None available. TECHNIQUE: 3 views of the sacroiliac joints FINDINGS: Sclerosis of the sacroiliac joints more conspicuous on the right side. No lytic or blastic lesions. No acute cortical disruption. IMPRESSION: Mild to moderate sacroiliitis, bilaterally. MR LUMBAR SPINE WITHOUT CONTRAST 06/21/2019 at [facility] HISTORY: Decreased sensation both feet while walking rule out spinal stenosis initial encounter COMPARISON: None. TECHNIQUE: Sagittal and axial T1-weighted and fast spin echo T2-weighted images were obtained. FINDINGS: L1-2: The disc is of normal height and signal intensity without significant disc bulge or herniation. L2-3: The disc is of normal height and signal intensity without significant disc bulge or herniation. L3-4: The disc is of normal height and signal intensity without significant disc bulge or herniation. L4-5: The disc is of slightly diminished height and signal intensity. There is an annular tear with mild central disc herniation causing mild flattening the dural sac without nerve root compression. L5-S1: The disc is of normal height and signal intensity without significant disc bulge or herniation. Vertebral alignment is normal. There are scattered small benign vertebral hemangiomata. The marrow signal intensity is otherwise normal. Conus terminates at L1-2 and appears normal. There is no paraspinous mass. IMPRESSION: 1. Mild disc herniation at L4-5 causing mild flattening the dural sac without nerve root. MRI the lumbar spine is otherwise normal. No evidence for significant disc herniation or spinal stenosis. Assessment & Plan Assessment & Plan (1) Fibromyalgia: Code(s): M79.7 - Fibromyalgia Category: Medical (2) Chronic pain syndrome: Code(s): G89.4 - Chronic pain syndrome Category: Medical (3) Chronic low back pain: Code(s): M54.50 - Low back pain, unspecified; G89.29 - Other chronic pain Category: Medical (4) Lumbosacral spondylosis: Code(s): M47.817 - Spondylosis without myelopathy or radiculopathy, lumbosacral region Category: Medical (5) Sacroiliac joint pain: Code(s): M53.3 - Sacrococcygeal disorders, not elsewhere classified Category: Medical Plan Patient reports no improvement status post recent diagnostic lumbar medial branch block interventions. We discussed repeating same injections to reproduce positive effect for potential Sprint PNS or RFA procedures. Physical therapy is recommended to address thoracic and lumbar arthritis, focusing on exercises to improve mobility and reduce discomfort. The patient is advised to engage in sacroiliac joint and low back stretching exercises. Reviewed importance of regular physical activity, weight optimization, adequate hydration, sleep hygiene to manage symptoms and flare ups of fibromyalgia and improve quality of life. Follow-up will be as needed, with the option to revisit interventional procedures if future assessments indicate potential benefit. Patient was informed and verbally consented to the use of an ambient scribe for clinic note documentation during this visit. Orders: Orders PT Evaluation and Treatment Today G89.29 - Other chronic pain, G89.4 - Chronic pain syndrome, M47.817 - Spondylosis without myelopathy or radiculopathy, lumbosacral region, M53.3 - Sacrococcygeal disorders, not elsewhere classified, M54.50 - Low back pain, unspecified, M79.7 - Fibromyalgia Coding Level of Care Code Est Pt Level 3 (32031) Complex EM visit Add On G2211 Diagnoses Fibromyalgia M79.7 Chronic pain syndrome G89.4 Chronic low back pain M54.50; G89.29 Lumbosacral spondylosis M47.817 Sacroiliac joint pain M53.3
[2025-02-22 11:38] VITALS: BP 183/83; PULSE 89; O2SAT 98; BMI 34.2
--- OUTSIDE RECORDS SUMMARY | 2025-02-22 12:13 | XMS_ITS | Encounter Summary ---
Author Organization [facility] Address [address] [place] [phone] Phone Care Team Providers Care Solution Consultant Name Role Phone Davey Beyer MD Primary Care Provider + Encounter Details Date Type Department Care Team (Late st Contact Info) Description 01/29/2021 Ancillary Orders [facility] [address] [place] [address] Mariela Bejarano MD [address] [place] [address] [email or web address] Breast screening Social History Tobacco Use Types [...] documented as of this encounter Care Teams Solution Consultant Relationship Specialty Start Date End Date Davey Beyer MD [address] [place] [phone] [email or web address] PCP - General Internal Medicine 06/20/18 documented as of this encounter Additional Source Comments The information contained in this document represents components of the legal health record. It is not the complete legal health record.[facility]
== END 2025-02-22 11:55 | disposition home or self-care (01) ==
LOC: HO.PMC 11:34
PROVIDERS: PCP Internal Medicine; Visit Provider Nurse Practitioner Family
DX: M79.7 Fibromyalgia (principal); G89.4 Chronic pain syndrome; M54.50 Low back pain, unspecified; G89.29 Other chronic pain; M47.817 Spondylosis without myelopathy or radiculopathy, lumbosacral region; M53.3 Sacrococcygeal disorders, not elsewhere classified
CPT/HCPCS: 99213